=== PATIENT | female | born 1975 | race American Indian/Alaskan Native ===

== ENCOUNTER 2016-12-15 17:42 | Emergency (ER) | payer SELFPAY ==
[2016-12-15 18:35] VITALS: BP 158/98
[2016-12-15 18:58] LABS: Basophils % (Auto) 0.5 % (0.0-1.8); Eosinophils % (Auto) 3.4 % (0.0-4.3); Hematocrit 34.9 % (30.3-42.9); Mean Corpuscular HGB Conc 32 % (30-34); Mean Corpuscular Hemoglobin 24 pg (28-32); Mean Corpuscular Volume 75 fl (79-97); Platelet Count 347 K/mm3 (140-440); Red Blood Count 4.63 M/mm3 (3.65-5.03); Red Cell Distribution Width 15.4 % (13.2-15.2); White Blood Count 6.6 K/mm3 (4.5-11.0)
[2016-12-15 19:17] LABS: Albumin/Globulin Ratio 1.1 %; Alkaline Phosphatase 61 units/L (35-129); Anion Gap 15 mmol/L; Blood Urea Nitrogen 6 mg/dL (7-17); Calcium 9.1 mg/dL (8.4-10.2); Carbon Dioxide 31 mmol/L (22-30); Chloride 95.2 mmol/L (98-107); Glucose 170 mg/dL (65-100); Lipase 34 units/L (13-60); Potassium 3.7 mmol/L (3.6-5.0); Sodium 137 mmol/L (137-145); Total Protein 7.8 g/dL (6.3-8.2)
[2016-12-15 19:19] LABS: Alanine Aminotransferase < 5 units/L (7-56)
[2016-12-15 19:51] LABS: Bilirubin,Urine NEG (Negative); Blood,Urine NEG (Negative); Ketones,Urine NEG (Negative); Leukocyte Esterase,Urine NEG (Negative); Nitrite,Urine NEG (Negative); Protein,Urine <15 mg/dL mg/dL (Negative); Urobilinogen,Urine < 2.0 mg/dL (<2.0); WBC,Urine < 1.0 /HPF (0.0-6.0)
--- NOTE | 2016-12-16 02:47 | Emergency Department Report ---
HPI - General Chief Complaint: Abdominal Pain Time Seen by Provider: 12/16/16 02:28 - HPI HPI: Room 24 The patient is a 41-year-old female presenting with a chief complaint of weakness. The patient has multiple complaints which include weakness since yesterday. The patient says she also has noticed bilateral lower extremity edema for little over one week. Patient states for 4 days she has had pain in bilateral flanks radiating to her back. The patient also complains of diffuse abdominal pain also for proximal 4 days. Patient admits to nausea but denies vomiting or diarrhea. Patient denies dysuria or hematuria. The patient states for the past 2 years she his nose intermittent swelling of her right neck. The patient states she has not sought medical attention for the above complaints. Patient denies any history of fever. The patient states she does not have a primary physician Location: [see above] Duration: [see above] Quality: Weakness Severity: Moderate Modifying factors: [see above] Context: [see above] Mode of transportation: Unknown ED Past Medical Hx - Past Medical History Previous Medical History?: Yes Hx Hypertension: Yes - Surgical History Past Surgical History?: No Hx Appendectomy: Yes Additional Surgical History: , myomectomy - Family History Family history: no significant - Social History Smoking Status: Never Smoker Substance Use Type: Alcohol (occasional) - Medications Home Medications: Home Medications Medication Instructions Recorded Confirmed Last Taken Type Famotidine [Pepcid] 20 mg PO BID #20 tablet 12/16/16 Unknown Rx traMADol [Ultram] 50 mg PO Q6HR PRN #14 tablet 12/16/16 Unknown Rx ED Review of Systems ROS: Stated complaint: N/V/WEAKNESS/RIB PAIN Other details as noted in HPI Comment: All other systems reviewed and negative Constitutional: weakness. denies: chills, fever Eyes: denies: eye pain, eye discharge, vision change ENT: denies: ear pain, throat pain Respiratory: denies: cough, shortness of breath, wheezing Cardiovascular: denies: chest pain, palpitations Endocrine: no symptoms reported Gastrointestinal: abdominal pain, nausea. denies: vomiting, diarrhea Genitourinary: denies: urgency, dysuria, discharge Musculoskeletal: denies: back pain, joint swelling, arthralgia Skin: denies: rash, lesions Neurological: denies: headache, weakness, paresthesias Psychiatric: denies: anxiety, depression Hematological/Lymphatic: denies: easy bleeding, easy bruising Physical Exam - Physical Exam Vital Signs: Vital Signs 12/15/16 18:28 Temperature 98.6 F Pulse Rate 73 Respiratory 18 Rate Blood Pressure 158/98 O2 Sat by Pulse 100 Oximetry Physical Exam: GENERAL: The patient is well-developed well-nourished female lying on stretcher not appearing to be in acute distress. [] HEENT: Normocephalic. Atraumatic. Extraocular motions are intact. Patient has moist mucous membranes. NECK: Supple. No meningitic signs are noted. Trachea midline CHEST/LUNGS: Clear to auscultation. There is no respiratory distress noted. HEART/CARDIOVASCULAR: Regular. There is no tachycardia. There is no gallop rub or murmur. ABDOMEN: Abdomen is soft, without rebound or guarding. Patient acknowledges discomfort to palpation in epigastric region. Patient has normal bowel sounds. There is no abdominal distention. SKIN: There is no rash. There is trace bilateral lower extremity edema. There is no diaphoresis. NEURO: The patient is awake, alert, and oriented. The patient is cooperative. The patient has normal speech MUSCULOSKELETAL: There is no evidence of acute injury. ED Course Vital Signs 12/15/16 18:28 Temperature 98.6 F Pulse Rate 73 Respiratory 18 Rate Blood Pressure 158/98 O2 Sat by Pulse 100 Oximetry ED Medical Decision Making - Lab Data Result diagrams: 12/15/16 18:38 12/15/16 18:38 Laboratory Tests 12/15/16 12/15/16 12/15/16 18:36 18:36 18:38 WBC 6.6 RBC 4.63 Hgb 11.0 Hct 34.9 MCV 75 L MCH 24 L MCHC 32 RDW 15.4 H Plt Count 347 Lymph % (Auto) 42.9 H [place] % (Auto) 6.7 Eos % (Auto) 3.4 Baso % (Auto) 0.5 Lymph # 2.8 [place] # 0.4 Eos # 0.2 Baso # 0.0 Seg Neutrophils % 46.5 Seg Neutrophils # 3.1 Sodium Potassium Chloride Carbon Dioxide Anion Gap BUN Creatinine Estimated GFR BUN/Creatinine Ratio Glucose Calcium Total Bilirubin AST ALT Alkaline Phosphatase NT-Pro-B Natriuret Pep Total Protein Albumin Albumin/Globulin Ratio Lipase TSH Free T4 Urine Color Straw Urine Turbidity Clear Urine pH 7.0 Ur Specific [place] 1.006 Urine Protein <15 mg/dl Urine Glucose (UA) Neg Urine Ketones Neg Urine Blood Neg Urine Nitrite Neg Urine Bilirubin Neg Urine Urobilinogen < 2.0 Ur Leukocyte Esterase Neg Urine WBC (Auto) < 1.0 Urine RBC (Auto) 1.0 U Epithel Cells (Auto) 1.0 Urine HCG, Qual Negative 12/15/16 12/16/16 12/16/16 18:38 02:53 02:53 WBC RBC Hgb Hct MCV MCH MCHC RDW Plt Count Lymph % (Auto) [place] % (Auto) Eos % (Auto) Baso % (Auto) Lymph # [place] # Eos # Baso # Seg Neutrophils % Seg Neutrophils # Sodium 137 Potassium 3.7 Chloride 95.2 L Carbon Dioxide 31 H Anion Gap 15 BUN 6 L Creatinine 0.5 L Estimated GFR > 60 BUN/Creatinine Ratio 12.00 Glucose 170 H Calcium 9.1 Total Bilirubin 0.30 AST 13 ALT < 5 L Alkaline Phosphatase 61 NT-Pro-B Natriuret Pep 16.02 Total Protein 7.8 Albumin 4.0 Albumin/Globulin Ratio 1.1 Lipase 34 TSH 3.890 Free T4 0.87 Urine Color Urine Turbidity Urine pH Ur Specific [place] Urine Protein Urine Glucose (UA) Urine Ketones Urine Blood Urine Nitrite Urine Bilirubin Urine Urobilinogen Ur Leukocyte Esterase Urine WBC (Auto) Urine RBC (Auto) U Epithel Cells (Auto) Urine HCG, Qual - Radiology Data Radiology results: report reviewed (CT abdomen and pelvis), image reviewed (CT abdomen and pelvis) CT abdomen and pelvis (read by radiologist)-there is no acute abnormality identified - Differential Diagnosis hypothyroidism, aortic dissection, gastroenteritis, ulcer disease Critical care attestation.: If time is entered above; I have spent that time in minutes in the direct care of this critically ill patient, excluding procedure time. ED Disposition Clinical Impression: Abdominal pain Disposition: DISCHARGED TO HOME OR SELFCARE Is pt being admited?: No Does the pt Need Aspirin: No Condition: Stable Instructions: Abdominal Pain (ED) Additional Instructions: Return to the emergency department immediately should you develop worsening symptoms, fever, inability to tolerate food or liquid or any other concerns. Prescriptions: Famotidine [Pepcid] 20 mg PO BID #20 tablet traMADol [Ultram] 50 mg PO Q6HR PRN #14 tablet PRN Reason: Pain Referrals: [facility] [Outside] - 3-5 Days ERICK SPARKS MD [Staff Physician] - 3-5 Days (Dr. Sparks is a direct service worker. Please follow up with him for further evaluation of your abdominal pain) CALI LAYNE MD [Staff Physician] - 3-5 Days (Dr. Layne is a primary physician. Please follow up with him to be established as a patient) Time of Disposition: 05:37
[2016-12-16] MEDS ORDERED: NACL ONE (03:20)
--- NOTE | 2016-12-16 05:34 | Cat Scan Report ---
FINAL REPORT EXAM: CT ABDOMEN PELVIS W CON HISTORY: diffuse abdominal pain TECHNIQUE: CT abdomen and pelvis performed. Images extend from diaphragm to pubic symphysis. Images were obtained after the administration of IV contrast. No oral contrast was administered. Coronal and sagittal reformatted images were obtained. PRIORS: None. FINDINGS: The visualized aspects of the lung bases are clear. The visualized liver, spleen, pancreas, adrenal glands and kidneys demonstrate no significant abnormalities. There is no abdominal aortic aneurysm. There is no evidence of intestinal obstruction. The appendix is not specifically identified. There is no free intraperitoneal air. There are no abnormal fluid collections seen. The bladder is unremarkable. There is no abnormal pelvic mass or fluid collections seen. IMPRESSION: There is no acute abnormality identified.
== END 2016-12-16 06:00 | disposition home or self-care (01) ==
LOC: ED 17:42
DX: R10.9 Unspecified abdominal pain (principal); I10 Essential (primary) hypertension
CPT/HCPCS: 36415; 74177; 80053; 81001; 81025; 83690; 83880; 84439; 84443; 85025; 99284; Q9967

== ENCOUNTER 2019-01-24 10:45 | Emergency (ER) | payer SELFPAY ==
--- NOTE | 2019-01-24 11:18 | Emergency Department Report ---
<UZIEL MARIE - Last Filed: 01/24/19 11:09> ED Back Pain/Injury HPI - General Chief Complaint: Back Pain/Injury Stated Complaint: LEG PAIN Time Seen by Provider: 01/24/19 11:04 Source: patient Limitations: No Limitations - History of Present Illness Initial Comments: 43-year-old female presents to the emergency room for lower back pain since Monday when she started her menses. Patient states that the pain is worse when she wakes up in the morning. Patient reports that the pain wraps around to the front of her pelvic. Patient reports her last menstrual period was 01/18/19. She is a past medical history of hypertension or diabetes. She reports the pain as a 10 out of 10. She is 8 para 4. MD Complaint: back pain Onset/Timin -: days(s) Similar Symptoms Previously: No Severity: severe Severity scale (0 -10): 10 Quality: sharp, stabbing Consistency: intermittent Improves With: none Worsens With: movement, walking Associated Symptoms: denies other symptoms Treatments Prior to Arrival: NSAIDS, acetaminophen - Related Data Previous Rx's Medication Instructions Recorded Last Taken Type Famotidine [Pepcid] 20 mg PO BID #20 tablet 12/16/16 Unknown Rx traMADol [Ultram] 50 mg PO Q6HR PRN #14 tablet 12/16/16 Unknown Rx HYDROcodone/APAP 5-325 [Winnie 1 each PO Q6HR PRN #14 tablet 01/24/19 Unknown Rx 5/325] Ibuprofen [Motrin 600 MG tab] 600 mg PO Q8H PRN #20 tablet 01/24/19 Unknown Rx methOCARBAMOL [Robaxin TAB] 500 mg PO Q6H PRN #14 tablet 01/24/19 Unknown Rx Allergies Allergy/AdvReac Type Severity Reaction Status Date / Time quinine sulfate [From Quine] AdvReac Hives Verified 01/24/19 10:47 ED Review of Systems Comment: All other systems reviewed and negative ED Past Medical Hx - Past Medical History Hx Hypertension: Yes - Surgical History Hx Appendectomy: Yes Additional Surgical History: , myomectomy - Social History Smoking Status: Never Smoker Substance Use Type: None - Medications Home Medications: Home Medications Medication Instructions Recorded Confirmed Last Taken Type Famotidine [Pepcid] 20 mg PO BID #20 tablet 12/16/16 Unknown Rx traMADol [Ultram] 50 mg PO Q6HR PRN #14 tablet 12/16/16 Unknown Rx HYDROcodone/APAP 5-325 [Winnie 1 each PO Q6HR PRN #14 tablet 01/24/19 Unknown Rx 5/325] Ibuprofen [Motrin 600 MG tab] 600 mg PO Q8H PRN #20 tablet 01/24/19 Unknown Rx methOCARBAMOL [Robaxin TAB] 500 mg PO Q6H PRN #14 tablet 01/24/19 Unknown Rx ED Physical Exam - General Limitations: No Limitations General appearance: alert, in no apparent distress, in distress (from pain) - Head Head exam: Present: atraumatic, normocephalic - Eye Eye exam: Present: normal appearance - ENT ENT exam: Present: mucous membranes moist - Neck Neck exam: Present: normal inspection, full ROM - Respiratory Respiratory exam: Present: normal lung sounds bilaterally. Absent: respiratory distress - Back Exam Back exam: Present: full ROM, muscle spasm, paraspinal tenderness - Expanded Back Exam Expanded Back exam: Positive Straight Leg Raise: Right - Neurological Exam Neurological exam: Present: alert, oriented X3, normal gait - Psychiatric Psychiatric exam: Present: normal affect, normal mood - Skin Skin exam: Present: warm, dry, intact, normal color. Absent: rash ED Disposition Clinical Impression: Lumbar radiculopathy Disposition: - TO HOME OR SELFCARE Condition: Stable Instructions: Lumbar Disc Herniation (ED), Low Back Strain (ED) [facility] [Primary Care Provider] - 3-5 Days DANIEL CORONADO MD [Staff Physician] - 3-5 Days <JOSEPHINE VO - Last Filed: 01/24/19 13:04> ED Review of Systems ROS: Stated complaint: LEG PAIN Other details as noted in HPI ED Course Vital Signs 01/24/19 01/24/19 10:54 11:30 Temperature 97.4 F L Pulse Rate 86 Respiratory 16 18 Rate O2 Sat by Pulse 94 Oximetry ED Medical Decision Making - Lab Data Lab Results 01/24/19 Range/Units 11:34 Urine Color Yellow (Yellow) Urine Turbidity Cloudy (Clear) Urine pH 5.0 (5.0-7.0) Ur Specific [place] 1.024 (1.003-1.030) Urine Protein 100 mg/dl (Negative) mg/dL Urine Glucose (UA) Neg (Negative) mg/dL Urine Ketones Neg (Negative) mg/dL Urine Blood Lg (Negative) Urine Nitrite Neg (Negative) Ur Reducing Substances Not Reportable Urine Bilirubin Neg (Negative) Urine Ictotest Not Reportable Urine Urobilinogen < 2.0 (<2.0) mg/dL Ur Leukocyte Esterase Neg (Negative) Urine WBC (Auto) 12.0 H (0.0-6.0) /HPF Urine RBC (Auto) 8.0 (0.0-6.0) /HPF U Epithel Cells (Auto) 54.0 H (0-13.0) /HPF Hyaline Casts 12 /LPF Urine Mucus 2+ /HPF Urine HCG, Qual Negative (Negative) - Medical Decision Making H and with no urinary symptoms and the patient's urine was contaminated. Patient only having pain when she moves when she bends and when she coughs. Patient likely with a lumbar radiculopathy. patient to be discharged home with medication for symptomatic relief and follow with orthopedics. Critical care attestation.: If time is entered above; I have spent that time in minutes in the direct care of this critically ill patient, excluding procedure time. ED Disposition Is pt being admited?: No Does the pt Need Aspirin: No Time of Disposition: 13:04
[2019-01-24] MEDS ORDERED: TORADOL IM ONE (11:19)
[2019-01-24] MEDS ORDERED: DECADRON IM ONE (11:20)
[2019-01-24 12:07] LABS: HCG Qualitative,Urine Negative (Negative)
[2019-01-24 12:11] LABS: Bilirubin,Urine NEG (Negative); Blood,Urine LG (Negative); Hyaline Casts,Urine 12 /LPF; Mucus,Urine 2+ /HPF; Urobilinogen,Urine < 2.0 mg/dL (<2.0)
[2019-01-24 12:16] LABS: Color,Urine Yellow (Yellow)
== END 2019-01-24 13:11 | disposition home or self-care (01) ==
LOC: ED 10:45
DX: M54.16 Radiculopathy, lumbar region (principal); I10 Essential (primary) hypertension; Z90.89 Acquired absence of other organs; Z98.890 Other specified postprocedural states; Z88.8 Allergy status to other drugs, medicaments and biological substances
CPT/HCPCS: 81001; 81025; 87086; 96372; 99283; J1100; J1885